=== PATIENT | female | born 1960 | race Caucasian/White ===

== ENCOUNTER 2020-03-26 06:40 | Day surgery (SDC) | payer OTHER, SELFPAY ==
[~2020-03-26] VITALS: Ht 157.5 cm; Wt 78.5 kg
[2020-03-26] MEDS ORDERED: LIDOCAINE 2% 100 MG/5 ML UJET TP ONE (09:20)
[2020-03-26] MEDS ORDERED: fentaNYL citrate 0.05 MG/ML VIAL ONE (09:20)
== END 2020-03-26 10:00 | disposition home or self-care (01) ==
LOC: MDS 06:40 → MFCC 06:41 → MDS 10:00
PROVIDERS: ATTEND Internal Medicine Gastroenterology
DX: Z12.11 Encounter for screening for malignant neoplasm of colon (principal); D12.2 Benign neoplasm of ascending colon; E78.00 Pure hypercholesterolemia, unspecified; I10 Essential (primary) hypertension; Z98.890 Other specified postprocedural states
CPT/HCPCS: 45380; J3010; U0003